=== PATIENT | female | born 1940 | race Caucasian/White ===

== ENCOUNTER 2018-07-14 14:36 | Emergency (ER) | payer MEDICARE, BC ==
[~2018-07-14] VITALS: Ht 157.5 cm; Wt 150.0 kg
[~2018-07-14 14:36] MED LIST: ASPI325T6 PO; COLACE 100100 MG/CAP PO; FLONASE NASAL S16 GM; LIPITOR 10MG10 MG PO; MICROZIDE12.5 MG PO; MULTIVITAMIN1 CTB PO; NORCO 325 MG-51 TAB PO; NYSTATIN POWDER15 GM TOP; PIROXICAM10 MG PO; Patient's Own Medication OP; Patient's Own Medication PO; TENORMIN0.5 MG/ML PO; TYLENOL 325MG325 MG PO; ZYRTEC10 MG PO; [UNRECOGNIZED DRUG - OTHER] PO
[2018-07-14 14:57] VITALS: BP 138/89; TEMP 97.4
[2018-07-14 15:17] LABS: BASO % 0.5 % (0.0-2.0); EOS # 0.3 (0.0-0.7); EOS % 3.7 % (0-4.0); GRAN % 66.7 % (42.2-75.2); HEMATOCRIT 39.9 % (37.0-47.0); HEMOGLOBIN 13.2 g/dl (12.5-16.0); LYMPH # 1.4 (1.2-3.4); LYMPH % 18.7 % (20.0-51.0); MEAN CELL VOLUME 92 fl (80.0-100.0); MEAN CORPUSCULAR HEMOGLOBIN 30 pg (27.0-31.0); MEAN CORPUSCULAR HGB CONC 33 g/dl (33.0-37.0); MEAN PLATELET VOLUME 10.3 fl (7.4-10.4); MONO # 0.8 (0.1-0.6); MONO % 10.3 % (1.7-9.3); PLATELET COUNT 169 K/mm3 (130-400); RED BLOOD COUNT 4.34 M/mm3 (4.10-5.30); REDCELL DISTRIBUTION WIDTH-CV 13.8 % (11.5-14.5)
[2018-07-14 15:24] LABS: ALBUMIN 3.9 gm/dL (3.5-5.0); BILIRUBIN,TOTAL 0.4 mg/dL (0.0-1.0); CALCIUM 9.3 mg/dL (8.4-10.2); CREATININE, serum 1.05 mg/dL (0.52-1.25); POTASSIUM 4.5 mmol/L (3.4-5.0); TOTAL PROTEIN 6.5 gm/dL (6.4-8.2)
[2018-07-14] MEDS ORDERED: VITAMIND3 5000 (16:43)
[2018-07-14] MEDS ORDERED: OMEGA-3 1000 MG1 CAP PO (16:43)
[2018-07-14] MEDS ORDERED: VITAMIN E 400 U4001 PO (16:44)
[2018-07-14 19:05] VITALS: PULSE 37
== END 2018-07-14 19:10 | disposition short-term general hospital (02) ==
LOC: COL.ER 14:36
PROVIDERS: Emergency Medicine
DX: I48.91 Unspecified atrial fibrillation (principal); R00.1 Bradycardia, unspecified; I10 Essential (primary) hypertension; Z79.82 Long term (current) use of aspirin; Z79.51 Long term (current) use of inhaled steroids
CPT/HCPCS: J1610; J1644; J2405; J7030

== ENCOUNTER 2020-08-25 15:02 | Emergency (ER) | payer MEDICARE, BC ==
[~2020-08-25] VITALS: Ht 157.5 cm; Wt 147.7 kg
[~2020-08-25 15:02] MED LIST changes: +OMEGA-3 1000 MG1 CAP PO; +VITAMIN E 400 U4001 PO; +VITAMIND3 5000
[2020-08-25 15:08] VITALS: TEMP 97.7
[2020-08-25 15:48] LABS: BASO % 0.6 % (0.0-2.0); EOS # 0.2 (0.0-0.7); EOS % 3.2 % (0-4.0); GRAN # 4.6 (1.4-6.5); GRAN % 70.7 % (42.2-75.2); HEMATOCRIT 39.9 % (37.0-47.0); HEMOGLOBIN 12.8 g/dl (12.5-16.0); LYMPH % 14.9 % (20.0-51.0); MEAN CELL VOLUME 93 fl (80.0-100.0); MEAN CORPUSCULAR HEMOGLOBIN 30 pg (27.0-31.0); MEAN CORPUSCULAR HGB CONC 32 g/dl (33.0-37.0); MEAN PLATELET VOLUME 10.2 fl (7.4-10.4); MONO # 0.7 (0.1-0.6); PLATELET COUNT 191 K/mm3 (130-400); RED BLOOD COUNT 4.27 M/mm3 (4.10-5.30); REDCELL DISTRIBUTION WIDTH-CV 14.1 % (11.5-14.5)
[2020-08-25 15:59] LABS: INR 1.3 (0.8-3.0); PROTHROMBIN TIME 15.1 SECONDS (9.7-12.8)
[2020-08-25 16:00] LABS: ALBUMIN 3.8 gm/dL (3.5-5.0); BILIRUBIN,TOTAL 0.4 mg/dL (0.0-1.0); C-REACTIVE PROTEIN 4.9 mg/dL (0.0-0.9); CALCIUM 9.4 mg/dL (8.4-10.2); CREATININE, serum 1.32 (0.52-1.25); POTASSIUM 4.5 mmol/L (3.4-5.0); TOTAL PROTEIN 6.6 gm/dL (6.4-8.2)
[2020-08-25 16:01] LABS: PARTIAL THROMBOPLASTIN TIME 38.5 SECONDS (26.0-37.0)
[2020-08-25] MEDS ORDERED: CEPHALEXIN500 M1 PO (17:12)
[2020-08-25 17:31] VITALS: BP 101/80; PULSE 66
== END 2020-08-25 17:34 | disposition home or self-care (01) ==
LOC: COL.ER 15:02
PROVIDERS: Emergency Medicine
DX: M79.662 Pain in left lower leg (principal); L12.0 Bullous pemphigoid; Z79.82 Long term (current) use of aspirin